=== PATIENT | male | born 1975 | race Caucasian/White ===

== ENCOUNTER 2023-09-21 15:55 | Outpatient (CLI) | payer BC, SELFPAY | END 2023-09-21 15:56 | disposition home or self-care (01) | PROVIDERS: PCP Internal Medicine; Visit Provider Internal Medicine | DX: Z00.00 Encounter for general adult medical examination without abnormal findings (principal); E78.5 Hyperlipidemia, unspecified; R73.01 Impaired fasting glucose; Z12.5 Encounter for screening for malignant neoplasm of prostate | CPT/HCPCS: 80053; 80061; G0103 ==

== ENCOUNTER 2023-11-26 07:12 | Outpatient (CLI) | payer BC, SELFPAY ==
--- NOTE | 2023-11-26 08:10 | W.ANESCHARGE ---
Anesthesia Charges Start Date/Time Anesthesia Start Date: 11/26/23 Anesthesia Start Time: 07:48 Stop Date/Time Anesthesia Stop Date: 11/26/23 Anesthesia Stop Time: 08:09
--- NOTE | 2023-11-26 10:24 | W.ANESCHARGE ---
Anesthesia Charges Start Date/Time Anesthesia Start Date: 11/26/23 Anesthesia Start Time: 07:48 Stop Date/Time Anesthesia Stop Date: 11/26/23 Anesthesia Stop Time: 08:09
== END 2023-11-26 07:13 | disposition home or self-care (01) ==
PROVIDERS: PCP Internal Medicine; Visit Provider Internal Medicine
DX: Z12.11 Encounter for screening for malignant neoplasm of colon (principal)
CPT/HCPCS: 00812; 45378; J2704